=== PATIENT | female | born 1965 | race African-American/Black ===

== ENCOUNTER 2017-04-14 23:02 | Emergency (ER) | payer OTHER ==
[~2017-04-14] VITALS: Ht 162.6 cm; Wt 91.0 kg
[2017-04-15] MEDS ORDERED: IBUPROFEN 600MG TABLET PO ONE (01:30)
[2017-04-15] MEDS ORDERED: ACETAMINOPHEN 500MG TABLET PO ONE (01:30)
[2017-04-15 01:59] VITALS: BP 135/80
== END 2017-04-15 03:36 | disposition home or self-care (01) ==
LOC: ER 23:02
DX: M54.2 Cervicalgia (principal); V89.2XXA Person injured in unspecified motor-vehicle accident, traffic, initial encounter; Y93.89 Activity, other specified; Y92.89 Other specified places as the place of occurrence of the external cause; Y99.8 Other external cause status
CPT/HCPCS: 72125; 99284